=== PATIENT | male | born 1980 | race African-American/Black ===

== ENCOUNTER 2025-03-16 12:55 | Emergency (ER) | payer MEDICAID ==
[~2025-03-16] VITALS: Ht 172.7 cm; Wt 84.4 kg
[2025-03-16] MEDS: PREDNISONE 20MG TABLET PO STA (13:19)
[2025-03-16 13:36] VITALS: PULSE 108; RESP 28; O2SAT 100
[2025-03-16] MEDS: IPRATROPIUM BROMIDE (0.02%) 0.5MG/2.5ML NEB HHN STA (13:36)
[2025-03-16] MEDS: ALBUTEROL (0.083%) 2.5MG/3ML NEB HHN STA (13:36)
[2025-03-16 14:38] LABS: BASOPHILS % 0.6 % (0.0-2.0); EOSINOPHILS % 3.3 % (0.0-5.0); HEMATOCRIT. 45.5 % (42.0-52.0); HEMOGLOBIN. 14.4 g/dL (14.0-18.0); LYMPHOCYTES % 21.3 % (20.0-50.0); MEAN CORPUSCULAR HEMOGLOBIN 26.7 pg (28.0-32.0); MEAN CORPUSCULAR HGB CONC 31.7 g/dL (31.0-37.0); MEAN CORPUSCULAR VOLUME 84.1 fL (80.0-94.0); MEAN PLATELET VOLUME 9.4 fl (7.4-10.4); MONOCYTES % 8.3 % (2.0-8.0); NEUTROPHILS % 66.5 % (40.0-76.0); PLATELET 224 x1000/uL (130-400); RED BLOOD CELL COUNT 5.41 mill/uL (4.7-6.1); RED CELL DISTRIBUTION WIDTH 14.1 % (11.6-14.6); WHITE BLOOD COUNT 12.8 x1000/uL (4.5-11.0)
[2025-03-16 14:49] LABS: CARBON DIOXIDE 27 mEq/L (21-32); CHLORIDE 102 mEq/L (98-107); POTASSIUM 3.8 mEq/L (3.5-5.1); SODIUM 138 mEq/L (136-145)
[2025-03-16 14:50] LABS: CALCIUM 9.6 mg/dL (8.7-10.4)
[2025-03-16 14:55] LABS: GLUCOSE 111 mg/dL (70-105); UREA NITROGEN BLOOD 14 mg/dL (9-23)
[2025-03-16] MEDS ORDERED: ALBU18HF2 IH (15:40)
[2025-03-16] MEDS ORDERED: P50 MT (15:40)
[2025-03-16 15:57] VITALS: BP 136/94; PULSE 97; RESP 18; TEMP 37; O2SAT 100
== END 2025-03-16 15:58 | disposition home or self-care (01) ==
LOC: ER 12:55
DX: J98.01 Acute bronchospasm (principal); I49.9 Cardiac arrhythmia, unspecified
CPT/HCPCS: 80048; 85025; 36415; 71045; 94640; 93005; 99285; J7512; Z7610; 94070; 94664; 98960

== ENCOUNTER 2025-04-06 15:56 | Emergency (ER) | payer MEDICAID ==
[~2025-04-06] VITALS: Ht 175.3 cm; Wt 91.0 kg
[~2025-04-06 15:56] MED LIST: ALBU18HF2 IH; P50 MT
[2025-04-06 16:08] VITALS: TEMP 36.9; O2SAT 96
[2025-04-06 16:45] LABS: BASOPHILS % 0.7 % (0.0-2.0); EOSINOPHILS % 10.7 % (0.0-5.0); HEMATOCRIT. 47.7 % (42.0-52.0); HEMOGLOBIN. 15.3 g/dL (14.0-18.0); LYMPHOCYTES % 25.6 % (20.0-50.0); MEAN CORPUSCULAR HEMOGLOBIN 26.9 pg (28.0-32.0); MEAN CORPUSCULAR HGB CONC 32.1 g/dL (31.0-37.0); MEAN CORPUSCULAR VOLUME 83.8 fL (80.0-94.0); MEAN PLATELET VOLUME 9.3 fl (7.4-10.4); MONOCYTES % 9.8 % (2.0-8.0); NEUTROPHILS % 53.2 % (40.0-76.0); PLATELET 204 x1000/uL (130-400); RED BLOOD CELL COUNT 5.69 mill/uL (4.7-6.1); RED CELL DISTRIBUTION WIDTH 15.1 % (11.6-14.6); WHITE BLOOD COUNT 9.9 x1000/uL (4.5-11.0)
[2025-04-06 16:53] LABS: CHLORIDE 104 mEq/L (98-107); POTASSIUM 3.9 mEq/L (3.5-5.1); SODIUM 142 mEq/L (136-145)
[2025-04-06 16:54] LABS: CALCIUM 9.5 mg/dL (8.7-10.4); CARBON DIOXIDE 29 mEq/L (21-32)
[2025-04-06 16:59] LABS: CREATININE 1.3 mg/dL (0.6-1.3); GLUCOSE 76 mg/dL (70-105); UREA NITROGEN BLOOD 16 mg/dL (9-23)
[2025-04-06 17:15] LABS: TROPONIN I HIGH SENSITIVITY < 4 ng/L (3.0-53)
[2025-04-06] MEDS ORDERED: ALBU18HF2 IH (17:29)
[2025-04-06 18:19] VITALS: BP 135/92; PULSE 95; RESP 16; O2SAT 96
== END 2025-04-06 18:16 | disposition home or self-care (01) ==
LOC: ER 15:56
DX: B34.9 Viral infection, unspecified (principal); Z76.0 Encounter for issue of repeat prescription
CPT/HCPCS: 36415; 71045; 80048; 84484; 85025; 93005; 99285